=== PATIENT | female | born 1995 | race Caucasian/White ===

== ENCOUNTER 2019-07-11 08:49 | Emergency (ER) | payer OTHER ==
[~2019-07-11] VITALS: Ht 170.2 cm; Wt 74.8 kg
[2019-07-11] MEDS ORDERED: ZYRTEC10 M5 PO (09:00)
[2019-07-11] MEDS ORDERED: MYLAN PO (09:01)
[2019-07-11] MEDS ORDERED: FLEXERIL PO ×2 (10:33→10:46)
[2019-07-11 11:16] VITALS: BP 126/70
== END 2019-07-11 11:17 | disposition home or self-care (01) ==
LOC: M.ERS 08:49
DX: S06.0X0A Concussion without loss of consciousness, initial encounter (principal); V89.2XXA Person injured in unspecified motor-vehicle accident, traffic, initial encounter; Y92.89 Other specified places as the place of occurrence of the external cause; Y93.89 Activity, other specified; Y99.8 Other external cause status